=== PATIENT | male | born 1985 | race Caucasian/White ===

== ENCOUNTER 2020-08-03 10:02 | Emergency (ER) | payer OTHER ==
[~2020-08-03] VITALS: Ht 177.8 cm; Wt 90.9 kg
[2020-08-03 10:16] VITALS: BP 124/81
--- NOTE | 2020-08-03 10:38 | PHYS DOC ---
Past History Past Medical History: No Pertinent History Past Surgical History: No Surgical History Alcohol Use: None General Adult EDM: Chief Complaint: ABDOMINAL PAIN HPI: HPI: Patient is a 35-year-old male with left lower quadrant abdominal pain started 3 days ago, pain is gradually getting worse. Is constant but is worse with palpation and fast movements. Does not change with food. Denies any nausea, vomiting, diarrhea, blood in stools, constipation or history of, testicular pain or urinary symptoms. Has had any fevers. No surgical history. Review of Systems: Review of Systems: Constitutional: Denies fever or chills Eyes: Denies change in visual acuity HENT: Denies nasal congestion or sore throat Respiratory: Denies cough or shortness of breath Cardiovascular: Denies chest pain or edema GI: Abdominal pain but denies nausea, vomiting, bloody stools or diarrhea : Denies dysuria Musculoskeletal: Denies back pain or joint pain Integument: Denies rash Neurologic: Denies headache, focal weakness or sensory changes Endocrine: Denies polyuria or polydipsia Lymphatic: Denies swollen glands Psychiatric: Denies depression or anxiety Allergies: Allergies: Allergies Coded Allergies Type Severity Reaction Last Updated Verified No Known Drug Allergies 08/03/20 No Physical Exam: PE: Constitutional: Well developed, well nourished, no acute distress, non-toxic appearance. [] HENT: Normocephalic, atraumatic, bilateral external ears normal, oropharynx moist, no oral exudates, nose normal. [] Eyes: PERRLA, EOMI, conjunctiva normal, no discharge. [] Neck: Normal range of motion, no tenderness, supple, no stridor. [] Cardiovascular:Heart rate regular rhythm, no murmur [] Lungs & Thorax: Bilateral breath sounds clear to auscultation [] Abdomen: Soft, left lower quadrant tenderness, no rebound Skin: Warm, dry, no erythema, no rash. [] Back: No tenderness, no CVA tenderness. [] Extremities: No tenderness, no cyanosis, no clubbing, ROM intact, no edema. [] Neurologic: Alert and oriented X 3, normal motor function, normal sensory function, no focal deficits noted. [] Psychologic: Affect normal, judgement normal, mood normal. [] Current Patient Data: Vital Signs: Vital Signs Date Time Temp Pulse Resp B/P (MAP) Pulse Ox O2 Delivery O2 Flow Rate FiO2 08/03/20 10:16 98.3 58 18 124/81 (95) 98 EKG: EKG: [] Radiology/Procedures: Radiology/Procedures: EXAM: CT Abdomen and Pelvis with IV contrast INDICATION: Reason: LLQ pain / Spl. Instructions: / History: TECHNIQUE: Multi-detector row CT images were acquired from the lung bases through the abdomen and pelvis with the use of IV contrast. Sagittal and coronal images were acquired from the transaxial data. All CT scans performed at this facility utilize dose optimization techniques as appropriate to the exam, including the following: Automated exposure control and adjustment of the mA and/or KV according to patient size (this includes techniques or standardized protocols for targeted exams where dose is indication/reason for exam). IV CONTRAST: Administered ORAL CONTRAST: Not administered COMPARISON: None FINDINGS: LOWER CHEST: Unremarkable LIVER: 6 cm right hepatic lobe hemangioma. Additional subcentimeter hypodensity in hepatic segment 6 is too small to characterize but statistically likely to be a cyst. BILIARY SYSTEM: Gallbladder is unremarkable. Bile ducts are not dilated. PANCREAS: Unremarkable SPLEEN: Unremarkable ADRENALS: Unremarkable KIDNEYS & URETERS: Multiple nonobstructing bilateral renal calcified stones, including an 2 mm stone in the inferior pole right kidney, 4 mm midpole left kidney stone and a 4 mm inferior pole left kidney stone. No ureteral stones, hydronephrosis, perirenal soft tissue stranding or delayed nephrogram. BLADDER: Unremarkable REPRODUCTIVE ORGANS: Unremarkable GASTROINTESTINAL: Soft tissue stranding surrounding a 1.3 cm fatty nodule along the descending colonic omental fat present. The stomach, small bowel, and colon are otherwise unremarkable. The appendix is normal. MESENTERY/PERITONEUM/RETROPERITONEUM: Unremarkable VASCULAR: Unremarkable LYMPH NODES: No adenopathy OSSEOUS & SOFT TISSUES: Unremarkable IMPRESSION: Epiploic apendagitis of the descending colon. [] Heart Score: Risk Factors: Risk Factors: DM, Current or recent (<one month) smoker, HTN, HLP, family history of CAD, obesity. Risk Scores: Score 0 - 3: 2.5% MACE over next 6 weeks - Discharge Home Score 4 - 6: 20.3% MACE over next 6 weeks - Admit for Clinical Observation Score 7 - 10: 72.7% MACE over next 6 weeks - Early Invasive Strategies Course & Med Decision Making: Course & Med Decision Making Pertinent Labs and Imaging studies reviewed. (See chart for details) [] [place] Disclaimer: Dragon Disclaimer: This electronic medical record was generated, in whole or in part, using a voice recognition dictation system. Departure Departure: Impression: Primary Impression: Epiploic appendagitis Disposition: 01 DC HOME SELF CARE/HOMELESS Condition: STABLE Referrals: PCP,NO (PCP) Additional Instructions: Clarification on return to emergency department if you develop fever. Scripts Ibuprofen (IBUPROFEN) 400 Mg Tablet 2 TAB PO PRN Q8HRS PRN for PAIN for 5 Days, #30 TAB Prov: BHARGAV SELLERS MD 08/03/20 Tramadol Hcl (TRAMADOL HCL) 50 Mg Tablet 50 MG PO PRN Q6HRS PRN for PAIN for 5 Days, #15 TAB Prov: BHARGAV SELLERS MD 08/03/20 BHARGAV SELLERS MD Aug 03, 2020 10:38
[2020-08-03] MEDS ORDERED: IOHEXOL 300 MG/ML 75 ML VIAL. IV ONE (11:00)
--- NOTE | 2020-08-03 11:38 | RAD ---
EXAM: CT Abdomen and Pelvis with IV contrast INDICATION: Reason: LLQ pain / Spl. Instructions: / History: TECHNIQUE: Multi-detector row CT images were acquired from the lung bases through the abdomen and pelvis with the use of IV contrast. Sagittal and coronal images were acquired from the transaxial data. All CT scans performed at this facility utilize dose optimization techniques as appropriate to the exam, including the following: Automated exposure control and adjustment of the mA and/or KV according to patient size (this includes techniques or standardized protocols for targeted exams where dose is indication/reason for exam). IV CONTRAST: Administered ORAL CONTRAST: Not administered COMPARISON: None FINDINGS: LOWER CHEST: Unremarkable LIVER: 6 cm right hepatic lobe hemangioma. Additional subcentimeter hypodensity in hepatic segment 6 is too small to characterize but statistically likely to be a cyst. BILIARY SYSTEM: Gallbladder is unremarkable. Bile ducts are not dilated. PANCREAS: Unremarkable SPLEEN: Unremarkable ADRENALS: Unremarkable KIDNEYS & URETERS: Multiple nonobstructing bilateral renal calcified stones, including an 2 mm stone in the inferior pole right kidney, 4 mm midpole left kidney stone and a 4 mm inferior pole left kidney stone. No ureteral stones, hydronephrosis, perirenal soft tissue stranding or delayed nephrogram. BLADDER: Unremarkable REPRODUCTIVE ORGANS: Unremarkable GASTROINTESTINAL: Soft tissue stranding surrounding a 1.3 cm fatty nodule along the descending colonic omental fat present. The stomach, small bowel, and colon are otherwise unremarkable. The appendix is normal. MESENTERY/PERITONEUM/RETROPERITONEUM: Unremarkable VASCULAR: Unremarkable LYMPH NODES: No adenopathy OSSEOUS & SOFT TISSUES: Unremarkable IMPRESSION: Epiploic apendagitis of the descending colon. Electronically signed by: Jc Tobin MD (08/03/2020 11:35 AM) [id number]
[2020-08-03 11:45] LABS: BASO # 0.1 x10^3/uL (0.0-0.2); BASO % 1 % (0-3); EOS # 0.4 x10^3/uL (0.0-0.7); EOS % 5 % (0-3); HEMATOCRIT 47.7 % (39.0-53.0); HEMOGLOBIN 15.8 g/dL (13.0-17.5); LYMPH # 3.4 x10^3/uL (1.0-4.8); LYMPH % 43 % (24-48); MEAN CORPUSCULAR HEMOGLOBIN 31 pg (25-35); MEAN CORPUSCULAR HGB CONC 33 g/dL (31-37); MEAN CORPUSCULAR VOLUME 94 fL (79-100); MONO # 0.5 x10^3/uL (0.0-1.1); MONO % 6 % (0-9); NEUT # 3.6 x10^3uL (1.8-7.7); NEUT % 45 % (31-73); PLATELET COUNT 260 x10^3/uL (140-400); RED BLOOD COUNT 5.08 x10^6/uL (4.30-5.70)
[2020-08-03 12:09] LABS: BACTERIA,URINE 0 /HPF (0-FEW); BILIRUBIN,URINE NEG (NEG); CLARITY,URINE CLEAR; COLOR,URINE YELLOW; GLUCOSE,URINE NEG (NEG); NITRITE,URINE NEG (NEG); RBC,URINE 0 /HPF (0-2); SQUAMOUS EPITHELIAL CELL,UR OCC /LPF; UROBILINOGEN,URINE 0.2 mg/dL (0.2 mg/dL); WBC,URINE 0 /HPF (0-4)
[2020-08-03 12:18] LABS: CALCIUM 9.1 mg/dL (8.5-10.1); CREATININE 1.2 mg/dL (0.7-1.3); GFR 68.9; POTASSIUM 4.1 mmol/L (3.5-5.1)
[2020-08-03 12:25] LABS: ALBUMIN 4.1 g/dL (3.4-5.0); ALBUMIN/GLOBULIN RATIO 1.2 (1.0-1.7); TOTAL BILIRUBIN 0.7 mg/dL (0.2-1.0); TOTAL PROTEIN 7.5 g/dL (6.4-8.2)
[2020-08-03] MEDS ORDERED: TRAM50TA PO (12:53)
[2020-08-03] MEDS ORDERED: IBUP400T18 PO (12:53)
== END 2020-08-03 13:00 | disposition home or self-care (01) ==
LOC: ER 10:02
DX: K63.89 Other specified diseases of intestine (principal)
CPT/HCPCS: 36415; 74177; 80053; 81001; 83690; 85025; 99285-25

== ENCOUNTER 2020-10-21 14:28 | Emergency (ER) | payer OTHER ==
[~2020-10-21] VITALS: Ht 177.8 cm; Wt 90.9 kg
[~2020-10-21 14:28] MED LIST: IBUP400T18 PO; TRAM50TA PO
[2020-10-21 14:33] VITALS: BP 151/92
--- NOTE | 2020-10-21 14:50 | PHYS DOC ---
Past History Past Medical History: No Pertinent History Past Surgical History: No Surgical History Alcohol Use: None General Adult EDM: Chief Complaint: FOOT INJURY PAIN HPI: HPI: Patient is a 35 year old male who presents with left foot pain. The pain is located along the lateral aspect of his left foot near 5th MPT and is a 2/10 at rest but increased to a sharp 8/10 when deep pressure is applied through palpation, or when putting on his shoes. He states it "feels like there is a marble in my foot". He initially noticed this pain in August when he was playing basketball after he rolled onto the lateral side of his foot. He did not seek treatment at that time. The pain had improved but not completely resolved. However, yesterday he went snowboarding which caused the pain in his foot to return. He denies any specific trauma to his foot yesterday. He has treated at home with ice, heat and OTC pain medication. Review of Systems: Review of Systems: Constitutional: Denies fever or chills HENT: Denies nasal congestion or sore throat Respiratory: Denies cough or shortness of breath Cardiovascular: Denies chest pain or palpitations GI: Denies abdominal pain, nausea, or vomiting Musculoskeletal: Denies back pain. Admits joint pain limited to left foot Integument: Denies rash or skin lesions Neurologic: Denies headache, focal weakness or sensory changes Complete systems were reviewed and found to be within normal limits, except as documented in this note. Allergies: Allergies: Allergies Coded Allergies Type Severity Reaction Last Updated Verified No Known Drug Allergies 08/03/20 No Physical Exam: PE: Constitutional: Well developed, well nourished, no acute distress, non-toxic appearance HENT: Normocephalic, atraumatic Eyes: PERRL, EOMI, conjunctiva normal, no discharge Neck: Normal range of motion, no tenderness, supple Lungs & Thorax: No respiratory distress, equal chest rise and fall Skin: Warm, dry, no erythema, no rash Left foot:Tenderness with minor swelling over the left 5th MTP joint. No erythema. No ecchymosis. ROM intact, no edema, 2+ pedal pulse. Extremities: No tenderness, ROM intact, no edema Neurologic: Alert and oriented X 3, normal motor function, normal sensory function, no focal deficits noted Psychologic: Affect normal, judgment normal EKG: EKG: [] Radiology/Procedures: Radiology/Procedures: PROCEDURE: FOOT LEFT 3V XR FOOT_LEFT 3 VIEWS DATE: 10/21/2020 2:40 PM INDICATION: Reason: pain to lateral plantar aspect / Spl. Instructions: / History: COMPARISON: None. FINDINGS: Bones: There is no evidence of acute fracture or dislocation. Joints: The joint spaces are normal. Miscellaneous: None. IMPRESSION: No evidence of acute fracture. Electronically signed by: Ramses Moon MD (10/21/2020 3:23 PM) [facility] Course & Med Decision Making: Course & Med Decision Making Pertinent Imaging studies reviewed. (See chart for details) This 35 yom presents to the ED with atraumatic lateral left foot pain localized to the 5th MTP. Physical exam significant for localized point tenderness over the joint space. Imaging unremarkable for fracture or dislocation. The imaging findings were discussed with the patient. He displayed understanding and engaged in shared decision making. The patient was fitted with a post op boot for support, and topher bandage for compression. He was agreeable to rest, ice, elevate, and felt comfortable with OTC ibuprofen for pain management. He was provided with the name of a tile ditcher for follow up care. Patient stable for discharge with outpatient follow-up with PCP. Discussed findings and plan with patient, who acknowledges understanding and agreement. Sweetie Disclaimer: Sweetie Disclaimer: This electronic medical record was generated, in whole or in part, using a voice recognition dictation system. Departure Departure: Impression: Primary Impression: Foot pain, left Disposition: 01 DC HOME SELF CARE/HOMELESS Condition: STABLE Referrals: PCP,NO (PCP) Patient Instructions: Cast Shoe, Foot Sprain Additional Instructions: ICE area of discomfort 20 min on then leave off next 20 mins. Repeat several times daily as needed. Take over the counter Tylenol and/or Ibuprofen for pain or discomfort. Please call [facility] Address: [address] in [facility] CHEIKH BARBA DO Oct 21, 2020 14:50
--- NOTE | 2020-10-21 15:25 | RAD ---
XR FOOT_LEFT 3 VIEWS DATE: 10/21/2020 2:40 PM INDICATION: Reason: pain to lateral plantar aspect / Spl. Instructions: / History: COMPARISON: None. FINDINGS: Bones: There is no evidence of acute fracture or dislocation. Joints: The joint spaces are normal. Miscellaneous: None. IMPRESSION: No evidence of acute fracture. Electronically signed by: Ramses Moon MD (10/21/2020 3:23 PM) [email or web address]
== END 2020-10-21 15:30 | disposition home or self-care (01) ==
LOC: ER 14:28
DX: M79.672 Pain in left foot (principal); X50.9XXA Other and unspecified overexertion or strenuous movements or postures, initial encounter; Y93.23 Activity, snow (alpine) (downhill) skiing, snowboarding, sledding, tobogganing and snow tubing; Y92.89 Other specified places as the place of occurrence of the external cause; Y99.8 Other external cause status
CPT/HCPCS: 73630; 99283